=== PATIENT | female | born 1960 ===

== ENCOUNTER 2016-11-13 18:43 | Emergency (ER) | payer MEDICAID ==
[2016-11-13 18:50] VITALS: BP 152/102; PULSE 106; RESP 16; TEMP 98.1; O2SAT 100
--- NOTE | 2016-11-13 19:32 | ED PDOC ---
HPI: Trauma/Fall - HPI Time Seen by Provider: 11/13/16 19:22 Chief Complaint (Nursing): Lower Extremity Problem/Injury Chief Complaint (Provider): Evaluation s/p Mechanical Fall History Per: Patient, EMS History/Exam Limitations: no limitations Onset/Duration Of Symptoms: Hrs (just prior to arrival) Location Of Injury: Left: Chest (lateral ribs), Hand, Hip, Knee Severity: Moderate Associated Symptoms: denies: LOC Additional Complaint(s): Minda Murphy is a 56 year old female, with a past medical history inclusive of HTN and arthritis, who presents to the ED on 11/13/16, via EMS, for evaluation after having tripped and fallen on the sidewalk just prior to arrival. Upon initial evaluation, patient is complaining of pain to her left lateral ribs, left hand and left knee. Denies head trauma or loss of consciousness. She denies any dizziness or syncope prior to fall. Capable of painful but unassisted ambulation, further stating that rib pain is not exacerbated with deep inspiration. PMD: Meseret Villarreal Past Medical History Reviewed: Historical Data, Nursing Documentation, Vital Signs Vital Signs: Last Vital Signs Temp 98.1 F 11/13/16 18:48 Pulse 106 H 11/13/16 18:48 Resp 16 11/13/16 18:48 BP 152/102 H 11/13/16 18:48 Pulse Ox 100 11/13/16 18:48 - Medical History PMH: Arthritis, Asthma, Depression, HTN - Surgical History Other surgeries: cyst removal from neck - Family History Family History: States: No Known Family Hx - Living Arrangements Living Arrangements: With Family - Social History Current smoker - smoking cessation education provided: Yes (occasional) Alcohol: None Drugs: Denies - Home Medications Home Medications: Ambulatory Orders Medication Instructions Recorded Atenolol/Chlorthalidone 1 tab DAILY 06/23/13 Atenolol/Chlorthalidone 50 mg-25 mg 06/23/13 DiphenhydrAMINE [Benadryl] 25 mg PO Q4H PRN #30 cap 06/23/13 Famotidine [Pepcid] 40 mg PO DAILY #10 tab 06/23/13 Fluoxetine 10 mg DAILY 06/23/13 Prednisone 40 mg PO DAILY #8 tab 06/23/13 Proair Hfa 2 puff PRN 06/23/13 - Allergies Allergies/Adverse Reactions: Allergies Allergy/AdvReac Type Severity Reaction Status Date / Time No Known Allergies Allergy Unverified 06/23/13 08:25 Review of Systems ROS Statement: Except As Marked, All Systems Reviewed And Found Negative Cardiovascular: Negative for: Chest Pain Respiratory: Negative for: Shortness of Breath, SOB with Exertion Gastrointestinal: Negative for: Nausea, Vomiting Musculoskeletal: Positive for: Hand Pain (left), Leg Pain (left knee), Other ( left lateral rib pain) Physical Exam - Reviewed Nursing Documentation Reviewed: Yes Vital Signs Reviewed: Yes - Physical Exam Appears: Positive for: Non-toxic, No Acute Distress Head Exam: Positive for: ATRAUMATIC, NORMOCEPHALIC Skin: Positive for: Normal Color, Warm, Dry Eye Exam: Positive for: Normal appearance, EOMI, PERRL Neck: Positive for: Painless ROM Cardiovascular/Chest: Positive for: Regular Rate, Rhythm, Other (tenderness noted to left costal margin w/o palpable bony deformity or ecchymosis). Negative for: Murmur Respiratory: Positive for: Normal Breath Sounds. Negative for: Respiratory Distress Gastrointestinal/Abdominal: Positive for: Normal Exam, Soft. Negative for: Tenderness Back: Positive for: Normal Inspection Extremity: Positive for: Normal ROM (FROM of left hip, left knee, left ankle as well as all fingers of left hand (w/pain)), Tenderness (tenderness noted to anterior left knee; left hip is nontender), Swelling (left knee). Negative for : Deformity Neurologic/Psych: Positive for: Alert, Oriented - ECG O2 Sat by Pulse Oximetry: 100 (RA) Pulse Ox Interpretation: Normal - Other Rad CXR with left rib series X-Ray: Interpreted by Me, Viewed By Me X-Ray Interpretation: no rib fracture Left hand x-ray X-Ray: Interpreted by Me, Viewed By Me X-Ray Interpretation: no fx, no dis Left knee x-ray X-Ray: Interpreted by Me, Viewed By Me X-Ray Interpretation: no fx, no dis Medical Decision Making Medical Decision Makin:22 Initial Impression: left lateral rib, knee, hand pain s/p fall Initial Plan: * XR Ribs and Chest, Left * XR Left Hand * XR Left Knee * Tylenol 650mg PO * Incentive Spirometer * Reevaluation Patient aware of x-ray results. Crutches declined, knee immobilizer applied. She states tylenol did help the pain. Patient was instructed on use of incentive spirometer. Advised tylenol prn pain. Patient was referred to ortho scrap preparation supervisor for follow up. Scribe Attestation: Documented by Jennifer Douglas, acting as a scribe for Janet Brand PA-C. Provider Scribe Attestation: All medical record entries made by the Scribe were at my direction and personally dictated by me. I have reviewed the chart and agree that the record accurately reflects my personal performance of the history, physical exam, medical decision making, and the department course for this patient. I have also personally directed, reviewed, and agree with the discharge instructions and disposition. Procedures - Splinting Location: Left knee Pre-Made Type: knee immobilizer Pre-Proc Neuro Vasc Exam: normal Post-Proc Neuro Vasc Exam: normal Disposition - Clinical Impression Clinical Impression: Knee sprain, Hand contusion, Rib contusion, Accidental fall - Patient ED Disposition Is Patient to be Admitted: No Counseled Patient/Family Regarding: Studies Performed, Diagnosis, Need For Followup - Disposition Referrals: Meseret Villarreal APN [Advanced Practice Nurse] - Ze Campbell III, MD [Staff Provider] - Disposition: Routine/Home Disposition Time: 21:06 Condition: STABLE Additional Instructions: Ice and rest affected areas. Tylenol as needed for pain. Use incentive spirometer as directed as often as possible. Follow up with primary care doctor or with orthopedist. Instructions: Rib Contusion (ED), Hand Sprain (ED), Knee Sprain (ED), How to Use an Incentive Spirometer (ED)
--- NOTE | 2016-11-14 10:31 | RAD ---
PROCEDURE: Left Knee Radiographs. HISTORY: Pain. COMPARISON: None. FINDINGS: BONES: Normal. No fracture. JOINTS: Moderate medial joint space narrowing. Tiny posterior patellar osteophyte formation. JOINT EFFUSION: Suspect trace joint effusion OTHER FINDINGS: None. IMPRESSION: Normal radiographNo acute fractures. Moderate joint space narrowing medial compartment. Small posterior patellar osteophyte formation. Thes of the left knee.
--- NOTE | 2016-11-14 10:39 | RAD ---
PROCEDURE: Left Hand Radiographs. HISTORY: Trauma COMPARISON: None. FINDINGS: BONES: Bone alignment and mineralization are normal. There is no acute fracture or bone destruction. JOINTS: Normal. SOFT TISSUES: Normal. OTHER FINDINGS: None. IMPRESSION: No acute fracture or dislocation.
--- NOTE | 2016-11-14 10:41 | RAD ---
PROCEDURE: Radiographs of the Chest and Left Ribs. HISTORY: trauma COMPARISON: Comparison chest 04/25/2013. TECHNIQUE: Frontal radiograph of the chest and multiple oblique radiographs of the left ribs were obtained. FINDINGS: LEFT RIBS: No fracture or focal lesion visualized. LUNGS: Clear. PLEURA: No pneumothorax or pleural fluid. CARDIOVASCULAR: Normal sized heart. No pulmonary vascular congestion. OTHER FINDINGS: Mild multilevel degenerative spondylosis of the thoracic spine IMPRESSION: Unremarkable radiographs of the chest and left ribs. No left rib fracture. Recommend followup CT scan of the chest if rib fracture is suspected clinically
== END 2016-11-13 22:05 | disposition home or self-care (01) ==
LOC: H.ER 18:43
DX: S60.222A Contusion of left hand, initial encounter (principal); S83.92XA Sprain of unspecified site of left knee, initial encounter; S20.212A Contusion of left front wall of thorax, initial encounter; W19.XXXA Unspecified fall, initial encounter; Y92.410 Unspecified street and highway as the place of occurrence of the external cause; F17.200 Nicotine dependence, unspecified, uncomplicated; I10 Essential (primary) hypertension; J45.909 Unspecified asthma, uncomplicated

== ENCOUNTER 2017-04-06 09:50 | Emergency (ER) | payer MEDICAID ==
[2017-04-06 09:59] VITALS: TEMP 97.3; O2SAT 99
[2017-04-06 10:00] VITALS: BMI 41.0
--- NOTE | 2017-04-06 10:58 | ED PDOC ---
Syncope/Near Syncope/Dizziness Time Seen by Provider: 04/06/17 10:03 Chief Complaint (Nursing): Dizziness/Lightheaded Chief Complaint (Provider): Dizzy History Per: Patient Additional Complaint(s): 56 yo female, PMH of HTN, Anemia, Asthma, and Arthritis, Pt c/o dizziness x 2 weeks, intermittent and worse with movement, associated with nausea. Additionally, Pt right knee swelling and left knee pain. Pt has a history of arthritis and reports pain is worse when ambulating and going up stairs. Past Medical History Reviewed: Nursing Documentation, Vital Signs Vital Signs: Last Vital Signs Temp 97.3 F L 04/06/17 09:58 Pulse 89 04/06/17 09:58 Resp 20 04/06/17 09:58 BP 135/94 H 04/06/17 09:58 Pulse Ox 99 04/06/17 09:58 - Medical History PMH: Arthritis, Asthma, Depression, HTN - Family History Family History: States: Unknown Family Hx - Living Arrangements Living Arrangements: With Family - Social History Current smoker - smoking cessation education provided: No Alcohol: None Drugs: Denies - Immunization History Hx Tetanus Toxoid Vaccination: No Hx Influenza Vaccination: No Hx Pneumococcal Vaccination: No - Home Medications Home Medications: Ambulatory Orders Medication Instructions Recorded Fluconazole [Diflucan] 150 mg PO ONCE #1 tab 11/26/16 Lisinopril [Zestril] 10 mg PO 11/26/16 Montelukast [Singulair] 10 mg PO 11/26/16 Naproxen 500 mg PO Q8 11/26/16 Nitrofurantoin Macrocrystals 1 cap PO BID #14 cap 11/26/16 [Macrobid] Ranitidine HCl [Ranitidine 150] 150 mg PO 11/26/16 Meclizine [Meclizine*] 25 mg PO Q6 #30 tab 04/06/17 Methylprednisolone [Medrol Dose 4 mg PO DAILY #21 mg 04/06/17 Pack (21 tabs)] Ondansetron ODT [Zofran ODT] 2 mg PO Q6 PRN #5 odt 04/06/17 - Allergies Allergies/Adverse Reactions: Allergies Allergy/AdvReac Type Severity Reaction Status Date / Time No Known Allergies Allergy Verified 11/26/16 11:26 Review of Systems ROS Statement: Except As Marked, All Systems Reviewed And Found Negative Musculoskeletal: Positive for: Other (knee pain) Neurological: Positive for: Dizziness Physical Exam - Reviewed Nursing Documentation Reviewed: Yes Vital Signs Reviewed: Yes - Physical Exam Appears: Positive for: Well, Non-toxic, No Acute Distress Head Exam: Positive for: ATRAUMATIC, NORMAL INSPECTION, NORMOCEPHALIC Skin: Positive for: Normal Color, Warm, DRY Eye Exam: Positive for: EOMI, Normal appearance, PERRL ENT: Positive for: Normal ENT Inspection Neck: Positive for: Normal, Painless ROM Cardiovascular/Chest: Positive for: Regular Rate, Rhythm Respiratory: Positive for: CNT, Normal Breath Sounds Gastrointestinal/Abdominal: Positive for: Normal Exam, Bowel Sounds, Soft Back: Positive for: Normal Inspection Extremity: Positive for: Normal ROM, Other ((+) crepitus with flexion). Negative for: Tenderness, Deformity, Swelling Neurologic/Psych: Positive for: Alert, Oriented - Laboratory Results Result Diagrams: 04/06/17 11:32 04/06/17 11:32 - ECG O2 Sat by Pulse Oximetry: 99 Medical Decision Making Medical Decision Making: Diagnostics ordered Labs resulted and reviewed with Pt who demonstrated full understanding Head CT (-) Knee XR: NAd, DJD, as read by PAFranklin CBC and COMP resulted WNL Pt reports feeling improved after Antivert Disposition - Clinical Impression Clinical Impression: Dizzy spells, Knee pain, DJD (degenerative joint disease) - Patient ED Disposition Is Patient to be Admitted: No - Disposition Referrals: Emperatriz Taylor MD [Staff Provider] - [facility] [[facility]] Disposition: Routine/Home Disposition Time: 13:00 Condition: STABLE Prescriptions: Meclizine [Meclizine*] 25 mg PO Q6 #30 tab Methylprednisolone [Medrol Dose Pack (21 tabs)] 4 mg PO DAILY #21 mg Ondansetron ODT [Zofran ODT] 2 mg PO Q6 PRN #5 odt PRN Reason: Nausea/Vomiting Instructions: Vertigo (ED), Arthralgia (ED) Forms: [employer] (Azeri)
[2017-04-06 11:41] LABS: BASO # 0.1 K/uL (0.0-0.2); BASO % 0.6 % (0.0-2.0); EOS # 0.2 K/uL (0.0-0.7); EOS % 1.9 % (0.0-4.0); HEMATOCRIT 40.6 % (34.0-47.0); LYMPH # 2.7 K/uL (1.0-4.3); LYMPH % 33.3 % (20.0-40.0); MEAN CELL VOLUME 83.8 fl (81.0-99.0); MEAN CORPUSCULAR HEMOGLOBIN 27.4 pg (27.0-31.0); MEAN CORPUSCULAR HGB CONC 32.7 g/dL (33.0-37.0); MEAN PLATELET VOLUME 9.5 fl (7.2-11.7); MONO # 0.5 K/uL (0.0-0.8); MONO % 5.8 % (0.0-10.0); NEUT # 4.8 K/uL (1.8-7.0); NEUT % 58.4 % (50.0-75.0); NRBC % 0.1 % (0.0-0.0); RED CELL DISTRIBUTION WIDTH 15.2 % (11.5-14.5); WHITE BLOOD COUNT 8.3 K/uL (4.8-10.8)
[2017-04-06 11:58] LABS: ALB/GLOB RATIO 1.2 (1.0-2.1); ALKALINE PHOSPHATASE 103 U/L (38-126); ALT/SGPT 29 U/L (9-52); AST/SGOT 24 U/L (14-36); BILIRUBIN,TOTAL 0.5 mg/dl (0.2-1.3); BLOOD UREA NITROGEN 11 mg/dl (7-17); CALCIUM 9.6 mg/dL (8.4-10.2); CARBON DIOXIDE 28 mmol/L (22-30); CHLORIDE 103 mmol/L (98-107); GFR AFRICAN-AMERICAN > 60; GLUCOSE,RANDOM 104 mg/dL (65-105); POTASSIUM 3.6 MMOL/L (3.6-5.0); RBC URINE 15 /hpf (0-3); SODIUM 144 mmol/l (132-148); TOTAL PROTEIN 7.8 G/DL (6.3-8.2); URINE BACTERIA RARE (<OCC); URINE BILIRUBIN NEGATIVE (NEGATIVE); URINE BLOOD MODERATE (NEGATIVE); URINE COLOR YELLOW (YELLOW); URINE GLUCOSE (UA) NEG (Normal); URINE KETONE NEGATIVE (NEGATIVE); URINE LEUKOCYTE ESTERASE NEG Leu/uL (Negative); URINE PROTEIN NEGATIVE (NEGATIVE); URINE UROBILINOGEN 0.2-1.0 mg/dL (0.2-1.0); WBC URINE 1 /hpf (0-5)
--- NOTE | 2017-04-06 12:12 | CT ---
PROCEDURE: CT HEAD WITHOUT CONTRAST. HISTORY: dizzy COMPARISON: 04.25.2013 TECHNIQUE: Axial computed tomography images were obtained through the head/brain without intravenous contrast. Radiation dose: Total exam DLP = 881.73 mGy-cm. This CT exam was performed using one or more of the following dose reduction techniques: Automated exposure control, adjustment of the mA and/or kV according to patient size, and/or use of iterative reconstruction technique. FINDINGS: HEMORRHAGE: No intracranial hemorrhage. BRAIN: No mass effect or edema. No atrophy or chronic microvascular ischemic changes. VENTRICLES: Unremarkable. No hydrocephalus. CALVARIUM: Unremarkable. PARANASAL SINUSES: Unremarkable as visualized. No significant inflammatory changes. MASTOID AIR CELLS: Unremarkable as visualized. No inflammatory changes. OTHER FINDINGS: None. IMPRESSION: No acute intracranial abnormalities. No significant findings to account for the clinical presentation. No significant interval change compared to the prior examination(s).
--- NOTE | 2017-04-06 12:52 | RAD ---
PROCEDURE: Right Knee Radiographs. HISTORY: pain and swelling No antecedent history of trauma provided. COMPARISON: None. FINDINGS: BONES: No acute fracture. JOINTS: Medial compartment narrowing. JOINT EFFUSION: None. OTHER FINDINGS: None. IMPRESSION: No acute findings related to/accounting for the clinical presentation.
[2017-04-06 13:16] VITALS: BP 122/79; PULSE 80; RESP 18
--- NOTE | 2017-04-07 08:59 | CARD ---
APPROVED REPORT EKG Measurement Heart [id number] <Conclusion> Normal sinus rhythm Normal ECG
== END 2017-04-06 13:19 | disposition home or self-care (01) ==
LOC: H.ER 09:50
DX: R42 Dizziness and giddiness (principal); M25.561 Pain in right knee; I10 Essential (primary) hypertension; D64.9 Anemia, unspecified

== ENCOUNTER 2017-08-10 07:45 | Emergency (ER) | payer MEDICAID ==
[2017-08-10 07:46] VITALS: BMI 41.0
[2017-08-10 08:00] VITALS: BP 126/105; PULSE 88; RESP 16; TEMP 99
[2017-08-10] MEDS ORDERED: Albuterol 0.083% Inhal Sol (2.5 mg/3 mL) UD INH ONE (09:16)
--- NOTE | 2017-08-10 09:44 | ED PDOC ---
HPI: CCC, URI, Sore Throat Time Seen by Provider: 08/10/17 08:00 Chief Complaint (Nursing): Cough, Cold, Congestion Chief Complaint (Provider): Cough History Per: Patient History/Exam Limitations: no limitations Onset/Duration Of Symptoms: Days (x1) Current Symptoms Are (Timing): Still Present Location Of Pain: Headache Associated Symptoms: Chills, Cough (productive), Sputum (yellow), Nausea, Other (left leg pain). denies: Fever Ear Symptoms: Bilateral: None Additional Complaint(s): Minda Murphy is a 56 year old female, with a past medical history of chronic back pain, hypertension and asthma, who was brought to the emergency department by EMS complaining of chronic left leg pain due to degeneratiev arthritis, headache, nausea, and cough onset since last night. She reports a productive cough with yellow sputum. She denies any fever or other medical complaints. no chest pain or shortness of breath. PMD: Meseret Villarreal Past Medical History Reviewed: Historical Data, Nursing Documentation, Vital Signs Vital Signs: Last Vital Signs Temp 99.0 F 08/10/17 07:58 Pulse 88 08/10/17 07:58 Resp 16 08/10/17 07:58 BP 126/105 H 08/10/17 07:58 Pulse Ox 99 08/10/17 11:59 - Medical History PMH: Arthritis, Asthma, Depression, HTN - Surgical History Surgical History: No Surg Hx - Family History Family History: States: Unknown Family Hx - Social History Current smoker - smoking cessation education provided: Yes (light smoker <2 cigarettes daily) Alcohol: None Drugs: Denies - Immunization History Hx Tetanus Toxoid Vaccination: No Hx Influenza Vaccination: No Hx Pneumococcal Vaccination: No - Home Medications Home Medications: Ambulatory Orders Medication Instructions Recorded Fluconazole [Diflucan] 150 mg PO ONCE #1 tab 11/26/16 Lisinopril [Zestril] 10 mg PO 11/26/16 Montelukast [Singulair] 10 mg PO 11/26/16 Naproxen 500 mg PO Q8 11/26/16 Nitrofurantoin Macrocrystals 1 cap PO BID #14 cap 11/26/16 [Macrobid] Ranitidine HCl [Ranitidine 150] 150 mg PO 11/26/16 Meclizine [Meclizine*] 25 mg PO Q6 #30 tab 04/06/17 Methylprednisolone [Medrol Dose 4 mg PO DAILY #21 mg 04/06/17 Pack (21 tabs)] Ondansetron ODT [Zofran ODT] 2 mg PO Q6 PRN #5 odt 04/06/17 - Allergies Allergies/Adverse Reactions: Allergies Allergy/AdvReac Type Severity Reaction Status Date / Time No Known Allergies Allergy Verified 11/26/16 11:26 Review of Systems ROS Statement: Except As Marked, All Systems Reviewed And Found Negative Constitutional: Negative for: Fever Respiratory: Positive for: Cough (productive), Sputum (yellow ) Gastrointestinal: Positive for: Nausea Musculoskeletal: Positive for: Leg Pain (left leg) Neurological: Positive for: Headache Physical Exam - Reviewed Nursing Documentation Reviewed: Yes Vital Signs Reviewed: Yes - Physical Exam Appears: Positive for: Well, Non-toxic, No Acute Distress Head Exam: Positive for: ATRAUMATIC, NORMAL INSPECTION, NORMOCEPHALIC Skin: Positive for: Normal Color, Warm, Dry Eye Exam: Positive for: Normal appearance, EOMI, PERRL ENT: Positive for: Normal ENT Inspection Neck: Positive for: Normal, Painless ROM, Supple Cardiovascular/Chest: Positive for: Regular Rate, Rhythm. Negative for: Murmur Respiratory: Positive for: Normal Breath Sounds. Negative for: Respiratory Distress Gastrointestinal/Abdominal: Positive for: Normal Exam, Soft. Negative for: Tenderness Back: Positive for: Normal Inspection. Negative for: L CVA Tenderness, R CVA Tenderness Extremity: Positive for: Normal ROM. Negative for: Pedal Edema, Deformity, Swelling Neurologic/Psych: Positive for: Alert, Oriented - ECG O2 Sat by Pulse Oximetry: 99 (RA) Pulse Ox Interpretation: Normal Medical Decision Making Medical Decision Making: Initial Impression: Cold s ympstom rule out flu Initial Plan: --Albuterol 0.083 Inhal Ayala 2.5 mg INH --[place] pre/post Tx --Influenza A B --reevaluation 11:37 --Patient is sleeping, feeling better. Flu swab came back negative. 11:57 --Urine came back negative patient will be discharged home. 12:00 --Upon provider evaluation patient is medically stable (sleeping), and requires no further treatment in the ED at this time. Patient will be discharged home. Counseling was provided and all questions were answered regarding diagnosis and need for follow up with outpatient clinic. There is agreement to discharge plan. Return if symptoms persist or worsen. Scribe Attestation: Documented by Jose Rafael Alvarez, acting as a scribe for Alyssa Benavides MD Provider Scribe Attestation: All medical record entries made by the Scribe were at my direction and personally dictated by me. I have reviewed the chart and agree that the record accurately reflects my personal performance of the history, physical exam, medical decision making, and the department course for this patient. I have also personally directed, reviewed, and agree with the discharge instructions and disposition. Disposition - Clinical Impression Clinical Impression: DJD (degenerative joint disease), Common cold - Patient ED Disposition Is Patient to be Admitted: No Counseled Patient/Family Regarding: Studies Performed, Diagnosis, Need For Followup - Disposition Referrals: [facility] [Outside] [facility] [Outside] Disposition: Routine/Home Disposition Time: 11:00 Condition: IMPROVED Additional Instructions: follow up with your primary doctor in 1-2 days return to the ED with any worsening or concerning symptoms Instructions: Cold Symptoms (ED), Arthritis (ED) Forms: [employer] (Rwandan)
[2017-08-10 11:38] VITALS: O2SAT 99
[2017-08-10 12:15] LABS: SQUAMOUS EPITHIAL 5 /hpf (0-5); URINE AMORPHOUS SEDIMENT RARE /ul (<OCC); URINE BILIRUBIN NEGATIVE (NEGATIVE); URINE BLOOD SMALL (NEGATIVE); URINE CLARITY SLIGHTY-CLOUDY (Clear); URINE COLOR YELLOW (YELLOW); URINE GLUCOSE (UA) NEG (Normal); URINE LEUKOCYTE ESTERASE NEG Leu/uL (Negative); URINE NITRATE NEGATIVE (NEGATIVE); URINE PROTEIN NEGATIVE (NEGATIVE); URINE UROBILINOGEN 0.2-1.0 mg/dL (0.2-1.0)
== END 2017-08-10 12:05 | disposition home or self-care (01) ==
LOC: H.ER 07:45
DX: J00 Acute nasopharyngitis [common cold] (principal); M19.90 Unspecified osteoarthritis, unspecified site; F32.9 Major depressive disorder, single episode, unspecified; I10 Essential (primary) hypertension; J45.909 Unspecified asthma, uncomplicated

== ENCOUNTER 2017-12-02 11:17 | Emergency (ER) | payer MEDICAID ==
[2017-12-02 11:27] VITALS: BMI 42.7
[2017-12-02 11:28] VITALS: O2SAT 96
--- NOTE | 2017-12-02 12:13 | ED PDOC ---
HPI: General Adult Time Seen by Provider: 12/02/17 11:22 Chief Complaint (Nursing): Abnormal Skin Integrity Chief Complaint (Provider): Itchiness, right groin x 1 week History Per: Patient History/Exam Limitations: no limitations Onset/Duration Of Symptoms: Days Have you had recent travel within the past 21 days to any of the following countries: [place], [place], [place] or [place]?: No Current Symptoms Are (Timing): Still Present Additional Complaint(s): Pt states she saw a fly in her home and thinks she its is a bite. Denies fever.chills. PT has not taken anything for symptoms. Past Medical History Reviewed: Historical Data, Nursing Documentation, Vital Signs Vital Signs: Last Vital Signs Temp 97.6 F 12/02/17 11:27 Pulse 84 12/02/17 11:27 Resp 17 12/02/17 11:27 BP 146/91 H 12/02/17 11:27 Pulse Ox 96 12/02/17 11:27 - Medical History PMH: Arthritis, Asthma, Depression, HTN - Surgical History Surgical History: - Family History Family History: States: Unknown Family Hx - Living Arrangements Living Arrangements: With Family - Social History Current smoker - smoking cessation education provided: No - Immunization History Hx Tetanus Toxoid Vaccination: No Hx Influenza Vaccination: No Hx Pneumococcal Vaccination: No - Home Medications Home Medications: Ambulatory Orders Medication Instructions Recorded Lisinopril [Zestril] 10 mg PO DAILY 11/26/16 Montelukast [Singulair] 10 mg PO HS 11/26/16 Naproxen 500 mg PO Q8 11/26/16 Ranitidine HCl [Ranitidine 150] 150 mg PO DAILY 11/26/16 Ergocalciferol (Vitamin D2) 50,000 unit PO QWK 11/25/17 [Vitamin D2] Fluconazole [Diflucan] 150 mg PO ONCE #1 tab 11/25/17 Fluticasone Propionate [24 Hour 1 spray NS DAILY 11/25/17 Allergy] Hydroxyzine HCl 25 mg PO HS 11/25/17 Metronidazole [Metrogel-Vaginal] 1 ea VG QPM 7 Days #7 gel 11/25/17 Clotrimazole 1% Cream [Lotrimin 1% 1 applic TOP BID #2 tube 12/02/17 CREAM] DiphenhydrAMINE [Benadryl] 50 mg PO Q6H PRN #20 cap 12/02/17 - Allergies Allergies/Adverse Reactions: Allergies Allergy/AdvReac Type Severity Reaction Status Date / Time No Known Allergies Allergy Verified 12/02/17 11:34 Review of Systems ROS Statement: Except As Marked, All Systems Reviewed And Found Negative Constitutional: Negative for: Fever, Chills Physical Exam - Reviewed Nursing Documentation Reviewed: Yes Vital Signs Reviewed: Yes - Physical Exam Appears: Positive for: Well, Non-toxic, No Acute Distress Head Exam: Positive for: ATRAUMATIC, NORMAL INSPECTION, NORMOCEPHALIC Skin: Positive for: Warm. Negative for: Normal Color (Erythema intertriginous area of the right lower abdomen/groin) Eye Exam: Positive for: Normal appearance ENT: Positive for: Normal ENT Inspection Neck: Positive for: Normal, Painless ROM Cardiovascular/Chest: Positive for: Regular Rate, Rhythm Respiratory: Positive for: CNT, Normal Breath Sounds Gastrointestinal/Abdominal: Positive for: Normal Exam, Soft. Negative for: Tenderness Back: Positive for: Normal Inspection Extremity: Positive for: Normal ROM Neurologic/Psych: Positive for: Alert, Oriented - ECG O2 Sat by Pulse Oximetry: 96 Medical Decision Making Medical Decision Making: Benadryl PO in ER. Disposition - Clinical Impression Clinical Impression: Yeast infection of the skin - Disposition Disposition: Routine/Home Disposition Time: 12:13 Condition: STABLE Prescriptions: Clotrimazole 1% Cream [Lotrimin 1% CREAM] 1 applic TOP BID #2 tube DiphenhydrAMINE [Benadryl] 50 mg PO Q6H PRN #20 cap PRN Reason: Itching / Pruritus Instructions: Yeast Infection (DC)
[2017-12-02 12:27] VITALS: BP 142/84; PULSE 80; RESP 18; TEMP 98
== END 2017-12-02 12:26 | disposition home or self-care (01) ==
LOC: H.ER 11:17
DX: B37.2 Candidiasis of skin and nail (principal); F32.9 Major depressive disorder, single episode, unspecified; I10 Essential (primary) hypertension

== ENCOUNTER 2018-04-24 06:29 | Emergency (ER) | payer MEDICAID ==
[2018-04-24 06:29] VITALS: BMI 42.7
[2018-04-24] MEDS ORDERED: Albuterol-Ipratrop 3 mg / 0.5 (3 ml) UD ONE (06:47)
[2018-04-24] MEDS ORDERED: Albuterol-Ipratrop 3 mg / 0.5 (3 ml) UD INH STA (07:21)
--- NOTE | 2018-04-24 07:24 | ED PDOC ---
HPI: SOB/CHF/COPD Time Seen by Provider: 04/24/18 07:06 Chief Complaint (Nursing): Shortness Of Breath Chief Complaint (Provider): Shortness Of Breath History Per: Patient History/Exam Limitations: no limitations Onset/Duration Of Symptoms: Days (X3 WEEKS) Current Symptoms Are (Timing): Still Present Additional Complaint(s): 57 y/o female with a PMHx of Asthma, Bronchitis, HTN, hypercholesterolemia, DM and osteoporosis brought to the ED by EMS for evaluation of shortness of breath, onset 3 weeks ago. Patient reports shortness of breath is associated with productive cough, congestion and myalgia. Patient describes cough produces yellow sputum. Patient was given treatment for symptoms upon arrival by ambulance. Denies nausea, vomiting, diarrhea and any other pain. No chest pain. PMD: Ivone Rubio Past Medical History Reviewed: Historical Data, Nursing Documentation, Vital Signs Vital Signs: Last Vital Signs Temp 98.2 F 04/24/18 06:49 Pulse 75 04/24/18 07:04 Resp 13 04/24/18 07:04 BP 137/95 H 04/24/18 06:49 Pulse Ox 100 04/24/18 07:04 - Medical History PMH: Arthritis, Asthma, Bronchitis, Depression, Diabetes, HTN, Hypercholesterolemia, Osteoporosis - Surgical History Surgical History: No Surg Hx, - Family History Family History: States: Unknown Family Hx - Immunization History Hx Tetanus Toxoid Vaccination: No Hx Influenza Vaccination: No Hx Pneumococcal Vaccination: No - Home Medications Home Medications: Ambulatory Orders Medication Instructions Recorded Lisinopril [Zestril] 10 mg PO DAILY 11/26/16 Montelukast [Singulair] 10 mg PO HS 11/26/16 Naproxen 500 mg PO Q8 11/26/16 Ranitidine HCl [Ranitidine 150] 150 mg PO DAILY 11/26/16 Ergocalciferol (Vitamin D2) 50,000 unit PO QWK 11/25/17 [Vitamin D2] Fluconazole [Diflucan] 150 mg PO ONCE #1 tab 11/25/17 Fluticasone Propionate [24 Hour 1 spray NS DAILY 11/25/17 Allergy] Hydroxyzine HCl 25 mg PO HS 11/25/17 Metronidazole [Metrogel-Vaginal] 1 ea VG QPM 7 Days #7 gel 11/25/17 Clotrimazole 1% Cream [Lotrimin 1% 1 applic TOP BID #2 tube 12/02/17 CREAM] DiphenhydrAMINE [Benadryl] 50 mg PO Q6H PRN #20 cap 12/02/17 Albuterol Sulfate [Proair Hfa] 0.09 mg IH Q6H PRN #2 inh 04/24/18 Azithromycin [Zithromax] 250 mg PO DAILY 5 Days tab 04/24/18 predniSONE [predniSONE Tab] 20 mg PO BID 5 Days tab 04/24/18 - Allergies Allergies/Adverse Reactions: Allergies Allergy/AdvReac Type Severity Reaction Status Date / Time No Known Allergies Allergy Verified 12/02/17 11:34 Review of Systems ROS Statement: Except As Marked, All Systems Reviewed And Found Negative Respiratory: Positive for: Cough (Productive (yellow sputum)), Shortness of Breath, Sputum Gastrointestinal: Negative for: Nausea, Vomiting, Diarrhea Musculoskeletal: Positive for: Other (body aches) Physical Exam - Reviewed Nursing Documentation Reviewed: Yes Vital Signs Reviewed: Yes - Physical Exam Appears: Positive for: No Acute Distress Head Exam: Positive for: ATRAUMATIC, NORMOCEPHALIC Skin: Positive for: Normal Color, Warm, Dry Eye Exam: Positive for: Normal appearance, EOMI, PERRL ENT: Positive for: Nasal Congestion Neck: Positive for: Normal, Painless ROM Cardiovascular/Chest: Positive for: Regular Rate, Rhythm. Negative for: Murmur Respiratory: Positive for: Decreased Breath Sounds, Wheezing (Diffuse). Negative for: Respiratory Distress Back: Positive for: Normal Inspection. Negative for: L CVA Tenderness, R CVA Tenderness Extremity: Positive for: Normal ROM. Negative for: Deformity Neurologic/Psych: Positive for: Alert, Oriented. Negative for: Motor/Sensory Deficits - ECG O2 Sat by Pulse Oximetry: 100 (RA) Pulse Ox Interpretation: Normal - Progress ED Course And Treament: 903: Stable. AAOx3. Pain free. Tolerated po. Fu with pcp. - Critical Care Total Time (In Min): 30 Documented Critical Care: Time excludes all time spent performint seperately billable procedures Medical Decision Making Medical Decision Making: Time: 721 Impression: Shortness of Breath Plan: -- Duoneb 3 mg/0.5 mg (3 ml) UD 3 ml INH -- Duoneb 3 mg/0.5 mg (3 ml) UD 3 ml INH -- Duoneb 3 mg/0.5 mg (3 ml) UD 3 ml INH -- Peak Flow Pre/Post Tx Scribe Attestation: Documented by Azra Mccarthy acting as a scribe for David Gaspar MD. Provider Scribe Attestation: All medical record entries made by the Scribe were at my direction and personally dictated by me. I have reviewed the chart and agree that the record accurately reflects my personal performance of the history, physical exam, medical decision making, and the department course for this patient. I have also personally directed, reviewed, and agree with the discharge instructions and disposition. Disposition - Clinical Impression Clinical Impression: Asthma attack - Patient ED Disposition Is Patient to be Admitted: Yes Counseled Patient/Family Regarding: Diagnosis, Need For Followup, Rx Given - Disposition Referrals: [facility] [Outside] - 04/27/18 Disposition: Routine/Home Disposition Time: 09:08 Condition: STABLE Additional Instructions: Return if not better in 3 days. Prescriptions: Albuterol Sulfate [Proair Hfa] 0.09 mg IH Q6H PRN #2 inh PRN Reason: Wheezing Azithromycin [Zithromax] 250 mg PO DAILY 5 Days tab predniSONE [predniSONE Tab] 20 mg PO BID 5 Days tab Instructions: Asthma, Adult (DC) Forms: [facility] [facility] (Japanese), [facility] ED School/Work Excuse
[2018-04-24] MEDS: Albuterol-Ipratrop 3 mg / 0.5 (3 ml) UD IH STA ×2 (07:30→07:44)
[2018-04-24 09:28] VITALS: BP 130/80; PULSE 78; RESP 19; TEMP 97; O2SAT 98
== END 2018-04-24 09:28 | disposition home or self-care (01) ==
LOC: H.ER 06:29
DX: J45.909 Unspecified asthma, uncomplicated (principal); E11.9 Type 2 diabetes mellitus without complications; I10 Essential (primary) hypertension; J44.9 Chronic obstructive pulmonary disease, unspecified; M81.0 Age-related osteoporosis without current pathological fracture

== ENCOUNTER 2018-07-23 22:46 | Emergency (ER) | payer MEDICAID ==
[2018-07-23 22:46] VITALS: BMI 42.7
[2018-07-23] MEDS ORDERED: Naproxen 500 MG TAB PO ONE (23:59)
--- NOTE | 2018-07-24 00:02 | ED PDOC ---
Lower Extremity Pain/Injury Time Seen by Provider: 07/23/18 23:16 Chief Complaint (Nursing): Trauma Chief Complaint (Provider): fall, knee pain History Per: Patient History/Exam Limitations: no limitations Onset/Duration Of Symptoms: Hrs Current Symptoms Are (Timing): Still Present Additional Complaint(s): 57 y/o female presents for evaluation of bilateral knee pain and left ankle pain x 2 hours. Patient states she tripped in a pot hole while walking outside, landed on both knees. Patient reports pain to left ankle and right knee. Denies head injury, numbness/weakness lower extremities, limitation of movement. Past Medical History Reviewed: Historical Data, Nursing Documentation, Vital Signs Vital Signs: Last Vital Signs Temp 98 F 07/23/18 23:07 Pulse 90 07/23/18 23:07 Resp 18 07/23/18 23:07 BP 136/88 07/23/18 23:07 Pulse Ox 99 07/23/18 23:07 - Medical History PMH: Arthritis, Asthma, Bronchitis, Depression, Diabetes, HTN, Hypercholesterolemia, Osteoporosis - Surgical History Surgical History: - Family History Family History: States: Unknown Family Hx - Immunization History Hx Tetanus Toxoid Vaccination: No Hx Influenza Vaccination: No Hx Pneumococcal Vaccination: No - Home Medications Home Medications: Ambulatory Orders Medication Instructions Recorded Lisinopril [Zestril] 10 mg PO DAILY 11/26/16 Montelukast [Singulair] 10 mg PO HS 11/26/16 Naproxen 500 mg PO Q8 11/26/16 Ranitidine HCl [Ranitidine 150] 150 mg PO DAILY 11/26/16 Ergocalciferol (Vitamin D2) 50,000 unit PO QWK 11/25/17 [Vitamin D2] Fluconazole [Diflucan] 150 mg PO ONCE #1 tab 11/25/17 Fluticasone Propionate [24 Hour 1 spray NS DAILY 11/25/17 Allergy] Hydroxyzine HCl 25 mg PO HS 11/25/17 Metronidazole [Metrogel-Vaginal] 1 ea VG QPM 7 Days #7 gel 11/25/17 Clotrimazole 1% Cream [Lotrimin 1% 1 applic TOP BID #2 tube 12/02/17 CREAM] DiphenhydrAMINE [Benadryl] 50 mg PO Q6H PRN #20 cap 12/02/17 Albuterol Sulfate [Proair Hfa] 0.09 mg IH Q6H PRN #2 inh 04/24/18 Azithromycin [Zithromax] 250 mg PO DAILY 5 Days tab 04/24/18 predniSONE [predniSONE Tab] 20 mg PO BID 5 Days tab 04/24/18 Naproxen [Naprosyn] 500 mg PO Q12 PRN #14 tablet 07/24/18 - Allergies Allergies/Adverse Reactions: Allergies Allergy/AdvReac Type Severity Reaction Status Date / Time No Known Allergies Allergy Verified 07/23/18 23:07 Review of Systems ROS Statement: Except As Marked, All Systems Reviewed And Found Negative Musculoskeletal: Positive for: Leg Pain (bilateral knee pain, left ankle pain) Physical Exam - Reviewed Nursing Documentation Reviewed: Yes Vital Signs Reviewed: Yes - Physical Exam Appears: Positive for: Well, Non-toxic, No Acute Distress Pulses-Dorsalis Pedis (L): 2+ Pulses-Dorsalis Pedis (R): 2+ Pulses-Post. Tibialis (L): 2+ Pulses-Post. Tibialis (R): 2+ Extremity: Positive for: Normal ROM, Tenderness (right lateral knee tender with + abrasions; FROM. Distal NV/motor intact.), Swelling (left lateral malleolus with tenderness to palpation; distal NV/motor intact). Negative for: Pedal Edema, Calf Tenderness, Deformity Neurologic/Psych: Positive for: Alert, Oriented (x3). Negative for: Motor/Sensory Deficits - ECG O2 Sat by Pulse Oximetry: 99 - Other Rad xray bilateral knees X-Ray: Viewed By Me, Read By Radiologist X-Ray Interpretation: DJD xray left ankle X-Ray: Viewed By Me X-Ray Interpretation: no acute findings - Progress ED Course And Treament: xray left ankle xray bilateral knees naproxen PO Patient educated on findings, left ankle placed in air cast ALCON wrap applied to right knee Crutches given with demonstration on use. Advised RICE Rx Naproxen provided Advised ortho follow up Return precautions given Disposition - Clinical Impression Clinical Impression: Left ankle sprain, Right knee pain, Abrasion - Patient ED Disposition Is Patient to be Admitted: No Counseled Patient/Family Regarding: Studies Performed, Diagnosis, Need For Followup, Rx Given - Disposition Referrals: Nicola Clarke MD [Medical Doctor] - Disposition: Routine/Home Disposition Time: 02:26 Condition: IMPROVED Prescriptions: Naproxen [Naprosyn] 500 mg PO Q12 PRN #14 tablet PRN Reason: Pain, Moderate (4-7) Instructions: Ankle Sprain, Knee Pain, Skin Abrasions Forms: [employer] [facility] (Russian)
[2018-07-24] MEDS ORDERED: Naproxen 500 MG TAB PO ONE (00:05)
[2018-07-24 02:40] VITALS: BP 142/80; PULSE 67; RESP 16; TEMP 97.9; O2SAT 100
--- NOTE | 2018-07-24 16:37 | RAD ---
Date of service: 07/24/2018 PROCEDURE: Left Ankle Radiographs. HISTORY: fall, lateral pain COMPARISON: None available. FINDINGS: BONES: No no evidence of acute displaced fracture nor dislocation. The osseous structures appear grossly intact. Talar dome intact. Plantar and posterior calcaneal enthesophyte formation JOINTS: Mild degenerative osteoarthritis.. Ankle mortise maintained. . SOFT TISSUES: Moderate to significant bilateral soft tissue swelling OTHER FINDINGS: None. IMPRESSION: No definitive radiographic evidence of acute displaced fracture nor dislocation. Moderate to significant bilateral soft tissue swelling. If symptoms persist or occult fracture suspected clinically recommend follow-up CT scan.
--- NOTE | 2018-07-26 11:45 | RAD ---
Date of service: 07/24/2018 PROCEDURE: Right Knee Radiographs. HISTORY: fall, pain COMPARISON: None. FINDINGS: BONES: No visible fracture. No acute fracture. Proliferative hypertrophic changes emanating from the femoral condyle and tibial plateau regions. JOINTS: Normal. No osteoarthritis. JOINT EFFUSION: None. OTHER FINDINGS: None. IMPRESSION: No acute findings related to/ accounting for the clinical presentation. Additional benign and/or incidental findings described above. Concordant findings (preliminary report) provided by [facility].
== END 2018-07-24 03:16 | disposition home or self-care (01) ==
LOC: H.ER 22:46
DX: S83.91XA Sprain of unspecified site of right knee, initial encounter (principal); S93.402A Sprain of unspecified ligament of left ankle, initial encounter; W19.XXXA Unspecified fall, initial encounter; Y92.480 Sidewalk as the place of occurrence of the external cause; E11.9 Type 2 diabetes mellitus without complications; E78.00 Pure hypercholesterolemia, unspecified; J45.909 Unspecified asthma, uncomplicated

== ENCOUNTER 2018-10-02 04:27 | Emergency (ER) | payer MEDICAID ==
[2018-10-02 04:27] VITALS: BMI 42.7
[2018-10-02 04:31] VITALS: TEMP 97.7
[2018-10-02] MEDS ORDERED: Albuterol-Ipratrop 3 mg / 0.5 (3 ml) UD INH STA ×3 (04:43)
[2018-10-02] MEDS ORDERED: Albuterol-Ipratrop 3 mg / 0.5 (3 ml) UD ONE (04:51)
[2018-10-02 04:57] VITALS: RESP 16
[2018-10-02 05:34] VITALS: BP 156/81; PULSE 69; O2SAT 100
--- NOTE | 2018-10-02 06:11 | ED PDOC ---
HPI: SOB/CHF/COPD Time Seen by Provider: 10/02/18 04:32 Chief Complaint (Nursing): Respiratory Distress Chief Complaint (Provider): Respiratory Distress History Per: Patient History/Exam Limitations: no limitations Onset/Duration Of Symptoms: Other (Prior to arrival) Additional Complaint(s): 58 years old female with a history of diabetes, hypertension, asthma and bronchitis presents to ER for evaluation after she woke up from sleep felt out of breath prior to arrival. Patient reports she used her inhaler once but did not help. She states she felt her glands swollen in her throat. Patient reports chest tightness and states she is unsure of trigger. She denies fever and cough. PMD: [facility] Past Medical History Reviewed: Historical Data, Nursing Documentation, Vital Signs Vital Signs: Last Vital Signs Temp 97.7 F 10/02/18 05:34 Pulse 69 10/02/18 05:34 Resp 16 10/02/18 05:34 BP 156/81 H 10/02/18 05:34 Pulse Ox 100 10/02/18 05:34 - Medical History PMH: Arthritis, Asthma, Bronchitis, Depression, Diabetes, HTN, Hy percholesterolemia, Osteoporosis - Surgical History Surgical History: - Family History Family History: States: Unknown Family Hx - Social History Current smoker - smoking cessation education provided: Yes Alcohol: None Drugs: Denies - Immunization History Hx Tetanus Toxoid Vaccination: No Hx Influenza Vaccination: No Hx Pneumococcal Vaccination: No - Home Medications Home Medications: Ambulatory Orders Medication Instructions Recorded Lisinopril [Zestril] 10 mg PO DAILY 11/26/16 Montelukast [Singulair] 10 mg PO HS 11/26/16 Naproxen 500 mg PO Q8 11/26/16 Ranitidine HCl [Ranitidine 150] 150 mg PO DAILY 11/26/16 Ergocalciferol (Vitamin D2) 50,000 unit PO QWK 11/25/17 [Vitamin D2] Fluconazole [Diflucan] 150 mg PO ONCE #1 tab 11/25/17 Fluticasone Propionate [24 Hour 1 spray NS DAILY 11/25/17 Allergy] Hydroxyzine HCl 25 mg PO HS 11/25/17 Metronidazole [Metrogel-Vaginal] 1 ea VG QPM 7 Days #7 gel 11/25/17 Clotrimazole 1% Cream [Lotrimin 1% 1 applic TOP BID #2 tube 12/02/17 CREAM] DiphenhydrAMINE [Benadryl] 50 mg PO Q6H PRN #20 cap 12/02/17 Albuterol Sulfate [Proair Hfa] 0.09 mg IH Q6H PRN #2 inh 04/24/18 Azithromycin [Zithromax] 250 mg PO DAILY 5 Days tab 04/24/18 predniSONE [predniSONE Tab] 20 mg PO BID 5 Days tab 04/24/18 Naproxen [Naprosyn] 500 mg PO Q12 PRN #14 tablet 07/24/18 Prednisone [Deltasone] 40 mg PO DAILY 3 Days #6 tablet 10/02/18 - Allergies Allergies/Adverse Reactions: Allergies Allergy/AdvReac Type Severity Reaction Status Date / Time No Known Allergies Allergy Verified 07/23/18 23:07 Review of Systems ROS Statement: Except As Marked, All Systems Reviewed And Found Negative Constitutional: Negative for: Fever Cardiovascular: Positive for: Chest Pain (tightness) Respiratory: Positive for: Shortness of Breath. Negative for: Cough Physical Exam - Reviewed Nursing Documentation Reviewed: Yes Vital Signs Reviewed: Yes - Physical Exam Appears: Positive for: Well, No Acute Distress Head Exam: Positive for: ATRAUMATIC, NORMOCEPHALIC Skin: Positive for: Normal Color, Warm, Dry Eye Exam: Positive for: Normal appearance, EOMI, PERRL ENT: Positive for: Normal ENT Inspection Neck: Positive for: Normal, Painless ROM, Supple Cardiovascular/Chest: Positive for: Regular Rate, Rhythm. Negative for: Murmur Respiratory: Positive for: Wheezing (bilateral). Negative for: Respiratory Distress Gastrointestinal/Abdominal: Positive for: Normal Exam, Soft. Negative for: Tenderness Back: Positive for: Normal Inspection. Negative for: L CVA Tenderness, R CVA Tenderness Extremity: Positive for: Normal ROM. Negative for: Pedal Edema, Swelling Neurological/Psych: Positive for: Awake, Alert, Oriented (x3) - ECG O2 Sat by Pulse Oximetry: 100 (RA) Pulse Ox Interpretation: Normal Medical Decision Making Medical Decision Making: Time: 430 A/P: mild asthma exacerbation --No respiratory distress 0610 --On reevaluation patient reports feeling better, will be discharged home. Well appearing upon discharge Scribe Attestation: Documented by Elizabeth Rojas, acting as a scribe for Malik Dempsey MD. Provider Scribe Attestation: All medical record entries made by the Scribe were at my direction and personally dictated by me. I have reviewed the chart and agree that the record accurately reflects my personal performance of the history, physical exam, medical decision making, and the department course for this patient. I have also personally directed, reviewed, and agree with the discharge instructions and disposition. Disposition - Clinical Impression Clinical Impression: Asthma attack - Patient ED Disposition Is Patient to be Admitted: No - Disposition Referrals: Meseret Villarreal APN [Family Provider] - Disposition: Routine/Home Disposition Time: 06:10 Condition: GOOD Prescriptions: Prednisone [Deltasone] 40 mg PO DAILY 3 Days #6 tablet Instructions: Asthma in Adults Forms: [facility] (Vietnamese)
--- NOTE | 2018-10-02 21:08 | CARD ---
APPROVED REPORT Date of service: 10/02/2018 EKG Measurement Heart [id number] <Conclusion> Normal sinus rhythm Normal ECG
== END 2018-10-02 06:24 | disposition home or self-care (01) ==
LOC: H.ER 04:27
DX: J44.9 Chronic obstructive pulmonary disease, unspecified (principal); I10 Essential (primary) hypertension; J45.901 Unspecified asthma with (acute) exacerbation; F17.200 Nicotine dependence, unspecified, uncomplicated; E11.9 Type 2 diabetes mellitus without complications; Z86.59 Personal history of other mental and behavioral disorders; M81.0 Age-related osteoporosis without current pathological fracture; Z88.8 Allergy status to other drugs, medicaments and biological substances